=== PATIENT | female | born 1970 | race Caucasian/White ===

== ENCOUNTER → 2020-09-02 | Outpatient (CLI) | payer MEDICAID ==
--- NOTE | 2020-09-02 11:28 | BD ---
EXAMINATION TYPE: Axial Bone Density DATE OF EXAM: 09/02/2020 COMPARISON: NONE CLINICAL HISTORY: Height: 5 FT 4 IN Weight: 182 FRAX RISK QUESTIONS: Alcohol (3 or more units per day): NO Family History (Parent hip fracture): NO Glucocorticoids (More than 3mos): NO (Ex: prednisone, prednisolone, methylprednisolone, dexamethasone, and hydrocortisone). History of Fracture in Adulthood: YES Secondary Osteoporosis: 1. Type 1 Diabetes: NO 2. Hyperthyroidism: NO 3. Menopause before 45: YES CHEMO INDUCED 4. Malnutrition: NO 5. Chronic liver disease: NO Rheumatoid Arthritis: NO Current Tobacco Use: NO RISK FACTORS HISTORY OF: Family History of Osteoporosis: NO Active: YES Diet low in dairy products/other sources of calcium: NO Postmenopausal woman: OVARIES REMOVED 2018 Lost more than 2 inches in height since high school: NO MEDICATIONS: Thyroid Medications: YES Which medication: LEVOTHYROXINE How Lon YEARS Additional Medications: HORMONE DARIANA, LEVOTHYROXINE, DOXYCYCLINE, REFLUX MEDS, LOSARTIN Additional History: BREAST CANCER CYNDI MASTECTOMY CHEMO AND RADIATION EXAM MEASUREMENTS: Bone mineral densitometry was performed using the [employer] System. Bone mineral density as measured about the Lumbar spine is: ----- L1-L4(G/cm2): 0.936 T Score Values are as follows: ----- L2: -2.8 ----- L3: -2.0 ----- L4: -2.1 ----- L1-L4: -2.0 PREV IN NOTES Bone mineral density about the R hip (g/cm2): 0.972 Bone mineral density about the L hip (g/cm2): 0.936 T Score values are as follows: -----R Neck: -0.5 -----L Neck: -0.7 -----R Total: 0.1 -----L Total: 0.0 PREV IN NOTES IMPRESSION: Osteopenia NOTE: T-SCORE=SD OF THE YOUNG ADULT MEAN.
== END | disposition home or self-care (01) ==
LOC: RADBDWWP 08:34
PROVIDERS: ATTEND Internal Medicine Hematology
DX: M85.80 Other specified disorders of bone density and structure, unspecified site (principal); Z17.0 Estrogen receptor positive status [ER+]
CPT/HCPCS: 77080

== ENCOUNTER → 2021-02-16 | Outpatient (CLI) | payer MEDICAID ==
--- NOTE | 2021-02-16 12:12 | MR ---
EXAMINATION TYPE: MR lumbar spine wo con DATE OF EXAM: 02/16/2021 COMPARISON: None HISTORY: Low back pain TECHNIQUE: Multiplanar, multisequence images of the lumbar spine were acquired. L1-L2: Normal disc appearance without desiccation. No herniation, protrusion or disc bulging. No ca nal stenosis is present. Foramina are patent bilaterally. L2-L3: Normal disc appearance without desiccation. No herniation, protrusion or disc bulging. No ca nal stenosis is present. Foramina are patent bilaterally. L3-L4: Normal disc appearance without desiccation. No herniation, protrusion or disc bulging. No ca nal stenosis is present. Foramina are patent bilaterally. L4-L5: Normal disc appearance without desiccation. No herniation, protrusion or disc bulging. No ca nal stenosis is present. Foramina are patent bilaterally. L5-S1: There is a disc bulge without significant central canal stenosis but with moderate left neural foraminal narrowing. Lumbar segments are intact. No paraspinal masses are identified. Conus medullaris has a normal appe arance. Mild lower lumbar facet arthropathy is present. IMPRESSION: 1. L5-S1: There is a disc bulge without significant central canal stenosis but with moderate left tiffany ral foraminal narrowing. 2. Lower lumbar facet arthropathy.
== END | disposition home or self-care (01) ==
LOC: RADMRIMAIN 11:07
PROVIDERS: ATTEND Orthopaedic Surgery
DX: M51.27 Other intervertebral disc displacement, lumbosacral region (principal); M99.72 Connective tissue and disc stenosis of intervertebral foramina of thoracic region; M12.88 Other specific arthropathies, not elsewhere classified, other specified site
CPT/HCPCS: 72148

== ENCOUNTER → 2021-05-12 | Outpatient (CLI) | payer MEDICAID ==
[2021-05-12 18:45] LABS: Basophils # (A) 0.09 X 10*3/uL (0.00-0.10); Basophils % (A) 1.1 %; Eosinophils # (A) 0.65 X 10*3/uL (0.04-0.35); Eosinophils % (A) 8.1 %; HGB 13.8 g/dL (12.0-15.0); Lymphocytes # (A) 2.42 X 10*3/uL (0.90-5.00); Lymphocytes % (A) 30.2 %; MCH 28.6 pg (27.0-32.0); MCHC 32.1 g/dL (32.0-37.0); Mean Platelet Volume 10.1 fL (9.5-12.2); Neutrophils # (A) 4.43 X 10*3/uL (1.80-7.70); Neutrophils % (A) 55.4 %; Platelet Count 431 X 10*3/uL (140-440); RBC 4.83 X 10*6/uL (4.10-5.20); RDW 12.1 % (11.5-14.5); WBC 8.01 X 10*3/uL (4.50-10.00)
[2021-05-12 22:06] LABS: African American GFR (CKD) 120.4 (60.0-200.0); Albumin 4.9 g/dL (3.8-4.9); Albumin/Globulin Ratio 1.84 (1.60-3.17); Anion Gap 15.6 mmol/L (4.00-12.00); BUN/Creat Ratio 20.57 Ratio (12.00-20.00); Blood Urea Nitrogen 13.8 mg/dL (9.0-27.0); Calcium 9.2 mg/dL (8.7-10.3); Carbon Dioxide 21.8 mmol/L (21.6-31.8); Globulin 2.7 g/dL (1.6-3.3); Non-African American GFR(CKD) 103.9 (60.0-200.0); Phosphorus 4.1 mg/dL (2.4-5.1); Potassium 4.6 mmol/L (3.5-5.5); Total Bilirubin 0.2 mg/dL (0.30-1.20); Total Protein 7.6 g/dL (6.2-8.2)
== END | disposition home or self-care (01) ==
LOC: LABWHC1 12:00
PROVIDERS: ATTEND Internal Medicine
DX: C50.112 Malignant neoplasm of central portion of left female breast (principal); Z79.818 Long term (current) use of other agents affecting estrogen receptors and estrogen levels
CPT/HCPCS: 36415; 80053; 82306; 84100; 85025

== ENCOUNTER → 2021-06-14 | Outpatient (CLI) | payer MEDICAID ==
--- NOTE | 2021-06-14 10:03 | MR ---
EXAMINATION TYPE: MR brain wo/w con DATE OF EXAM: 06/14/2021 COMPARISON: None HISTORY: New onset headache, hx breast ca TECHNIQUE: Multiplanar, multisequence images of the brain and brainstem is performed without and with IV contras t, utilizing 8 mL intravenous Gadavist . FINDINGS: Diffusion weighted images demonstrate no evidence of a recent infarct or other diffusion ab normality. There is no extra-axial fluid collection or significant white matter signal abnormality. The ventricular system and cisternal spaces are normal in size and appearance. The brain volume is age appropriate. Midline structures demonstrate normal morphology. Cerebellar tonsils low-lying at the level of forame n magnum.. Post contrast images demonstrate linear area of enhancement in the right cerebellar hemis phere compatible with a venous angioma.. The dural venous sinuses appear patent. The visualized sinus es are clear and the globes are intact. IMPRESSION: 1. Incidental note made of a venous angioma within the right cerebellar hemisphere. No enhancing mass or mass effect
== END | disposition home or self-care (01) ==
LOC: RADMRIMAIN 08:59
PROVIDERS: ATTEND Family Medicine
DX: R51.9 Headache, unspecified (principal); Z85.3 Personal history of malignant neoplasm of breast
CPT/HCPCS: 70553; A9585

== ENCOUNTER → 2021-08-17 | Outpatient (CLI) | payer MEDICAID ==
[2021-08-17 23:23] LABS: Basophils # (A) 0.07 X 10*3/uL (0.00-0.10); Eosinophils # (A) 0.13 X 10*3/uL (0.04-0.35); Eosinophils % (A) 1.8 %; HCT 43.7 % (37.2-46.3); HGB 13.8 g/dL (12.0-15.0); Lymphocytes # (A) 2.04 X 10*3/uL (0.90-5.00); Lymphocytes % (A) 27.9 %; MCH 28.6 pg (27.0-32.0); MCHC 31.6 g/dL (32.0-37.0); MCV 90.7 fL (80.0-97.0); Mean Platelet Volume 10.1 fL (9.5-12.2); Monocytes # (A) 0.43 X 10*3/uL (0.20-1.00); Monocytes % (A) 5.9 %; Neutrophils # (A) 4.62 X 10*3/uL (1.80-7.70); Platelet Count 420 X 10*3/uL (140-440); RBC 4.82 X 10*6/uL (4.10-5.20); WBC 7.32 X 10*3/uL (4.50-10.00)
[2021-08-18 00:17] LABS: African American GFR (CKD) 109.7 (60.0-200.0); Albumin 4.9 g/dL (3.8-4.9); Albumin/Globulin Ratio 1.89 (1.60-3.17); Anion Gap 14.7 mmol/L (10.00-18.00); BUN/Creat Ratio 18.03 Ratio (12.00-20.00); Blood Urea Nitrogen 13.4 mg/dL (9.0-27.0); Calcium 9.2 mg/dL (8.7-10.3); Carbon Dioxide 23.7 mmol/L (20.0-27.5); Globulin 2.6 g/dL (1.6-3.3); Non-African American GFR(CKD) 94.7 (60.0-200.0); Phosphorus 3.6 mg/dL (2.4-5.1); Potassium 3.8 mmol/L (3.5-5.5); Total Bilirubin 0.3 mg/dL (0.30-1.20); Total Protein 7.5 g/dL (6.2-8.2)
== END | disposition home or self-care (01) ==
LOC: LABWHC1 15:30
PROVIDERS: ATTEND Internal Medicine
DX: C50.112 Malignant neoplasm of central portion of left female breast (principal); Z79.818 Long term (current) use of other agents affecting estrogen receptors and estrogen levels
CPT/HCPCS: 36415; 80053; 84100; 85025